=== PATIENT | female | born 1960 | race Caucasian/White ===

== ENCOUNTER 2021-08-18 15:48 | Emergency (ER) | payer OTHER ==
[~2021-08-18] VITALS: Ht 170.2 cm; Wt 76.2 kg
[2021-08-18 16:20] LABS: HEMATOCRIT 41.9 % (31.2-41.9); MEAN CORPUSCULAR HEMOGLOBIN 28.3 uug (24.7-32.8); MEAN CORPUSCULAR VOLUME 85.2 fL (75.5-95.3); PLATELET COUNT (AUTO) 189 K/uL (179-408)
[2021-08-18 16:26] LABS: CREATININE 1.4 mg/dL (0.6-1.3); POTASSIUM 4.2 mmol/L (3.5-5.1)
[2021-08-18] MEDS ORDERED: KETOROLAC TROMETHAMINE 15 MG INJ IVP ONE (17:45)
[2021-08-18] MEDS ORDERED: CYCLOBENZAPRINE HCL 10 MG TABLET PO ONE (17:45)
[2021-08-18] MEDS ORDERED: CYCLOBENZAPRINE HCL 10 MG TABLET ONE (17:49)
[2021-08-18] MEDS ORDERED: KETOROLAC TROMETHAMINE 15 MG INJ ONE (17:50)
[2021-08-18] MEDS ORDERED: NAPR-1009 PO (17:57)
[2021-08-18] MEDS ORDERED: CYCL5TAB PO (17:57)
--- NOTE | 2021-08-18 18:08 | NUR ---
Patient discharged to home in stable condition. Written and verbal after care instructions given. Patient verbalizes understanding of instructions. Stressed follow up or return to ER for worsening s/s.PT WALKS IN STEADY GAIT. PT SAYS FEELS BETTER. PT CALLED TO COME AND REGISTERED SALES ASSISTANT THE PT.
[2021-08-18 18:11] VITALS: BP 119/71
== END 2021-08-18 18:12 | disposition home or self-care (01) ==
LOC: ER 15:48
DX: M54.16 Radiculopathy, lumbar region (principal); N28.9 Disorder of kidney and ureter, unspecified; E11.9 Type 2 diabetes mellitus without complications; Z95.2 Presence of prosthetic heart valve
CPT/HCPCS: 36415; 74176; 80048; 85025; 96374; 99284; J1885; A4663